=== PATIENT | female | born 1960 | race Caucasian/White ===

== ENCOUNTER 2016-07-25 00:01 | Outpatient (POV) ==
[2015-11-06 17:15] VITALS: BMI 27.4
== END 2016-07-25 00:02 ==
LOC: OUTPT 00:01
PROVIDERS: ATTEND Otolaryngology
DX: H69.90 Unspecified Eustachian tube disorder, unspecified ear (principal)
CPT/HCPCS: 92557; 92567

== ENCOUNTER 2016-08-13 14:00 | Outpatient (RCR) ==
[2015-11-06 17:15] VITALS: BMI 27.4
--- NOTE | 2016-07-31 14:16 | RS.OPPTEV2 ---
Date of Note: 07/31/16 Visit #: 1 Date of Evaluation: 01/17/16 Date of Onset/Injury/Change in Status: 07/15/16 Surgery Performed?: No Treatment Diagnosis: Right shoulder pain History of Condition/Mechanism of Injury:: I have been having trouble with my right shoulder since 2008. She denies knowledge of how she hurt the shoulder but she started to loose the abillity to raise her arm and she was told that her shoulder was frozen. She was in [place] and had therapy at that time for 6 months. It got much better and she ended up moving here to [facility] and went to work at an [employer] where she again began having problems with pain and difficulty with movement. She was put on disability ~ 5 yrs ago but her shoulder still has not been improving.. She has been performing her previous HEP given by PT without benefit. Then she asked her doctor for PT orders. She is only able to sleep 1-2 hr at a time and has been this way since January 17, 2016. She doesn't knoww what happened but she noticed the pain returning on the . 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 Pain Assessment - Pain Description Pain Location: Right shoulder Pain Description: Throbbing, Aching Pain Description: Constant pain Current Pain Intensity: 7/10 Worst Pain Intensity: 10/10 Functional Outcome Measure UE Functional Index: 31 (39% disability) - G Codes & Severity Modifier G Codes & Modifier: Current: Carrying, Moving & Handling Objects - CL. Goal: CJ Source of G Code score: UE Functional Index Observation - Observation Posture: Rounded Shoulders, Scapula Asymmetry (Right pecs moderately tight.) Handedness: Right Shoulder ROM: Left WFL's Shoulder Muscle Strength: Left WFL's - Right Shoulder ROM Right Shoulder Flexion: 115 (Degrees) Right Shoulder Extension: 10 Right Shoulder Abduction: 130 Right Shoulder Internal Rotation: 50 Right Shoulder External Rotation: 30 Right Shoulder ROM Limitations: Pain - Right Shoulder Strength Right Shoulder Flexion: 4- Good- Right Shoulder Extension: 3 Fair Right Shoulder Abduction: 3- Fair- Right Shoulder External Rotation: 3+ Fair+ Right Shoulder Internal Rotation: 3 Fair - Right Elbow ROM Right Elbow Extension: -10 Palpation Palpation Findings: Tenderness, Muscle Guarding (Significant pain even to light touch of the right shoulder and scapular area.) Sensation - Sensation Sensation Description: Tingling (Right upper trap) Interventions - Exercise/Activities/Manual Therapy Exercises/Activities: AAROM right shoulder in all planes of motion 2 sets 10 reps each. She is limited by pain. She was unabe to tolerate any capsular stretching even lateral distraction of the glenohumeral joint. Total minutes of Exercise: 20 min Manual Therapy: NA - Charges Total Direct Minutes: 20 minutes Total Treatment Time: 60 minutes Procedures billed for this date of service:: PT wagner (Medium) and ther ex Assessment Assessment: Constant right shoulder pain with decreased ROM and strength as well as decreased right elbow extension. She is limited in all activity from the pain and decreased ROM and strength. Short Term Goals Goal #1: Patient is able to sleep up to 4 hrs at a time. Goal to be met by: 08/17/16 Goal #2: Right shoulder flexion 145 degrees. Goal to be met by: 08/17/16 Goal #3: Pain rating right shoulder 4/10 on average Goal to be met by: 08/17/16 Goal #4: Independent with basic HEP and knowing when to stop activity. Goal to be met by: 08/17/16 Group Home Goals Goal #1: Intermittent right shoulder pain. Goal to be met by: 08/31/16 Goal #2: Rgiht shoulder AROM WFL in all planes. Goal to be met by: 08/31/16 Goal #3: Right shoulder MMT 4/5 grossly. Goal to be met by: 08/31/16 Goal #4: Independent with DC HEP. Goal to be met by: 08/31/16 Plan - Treatment to be Provided Procedures: Therapeutic Exercises, Therapeutic Activity, Manual Therapy, Massage , Patient Education Modalities: Electrical Stimulation, Ultrasound/Phonophoresis, Class IV Laser, Cryotherapy, Hot Packs - Treatment Plan Frequency: 3 X week Duration: 4 weeks ORDER # VISITS AND/OR THROUGH DATE: 08/31/2016 - Treatment Code (1) Right shoulder pain Qualifiers: Chronicity: chronic Qualified Description: Chronic right shoulder pain Qualifier Code(s): (M25.511) Pain in right shoulder, (G89.29) Other chronic pain (2) Decreased ROM of right shoulder Comments: M25.624
--- NOTE | 2016-08-02 13:22 | RS.OPPTDN ---
Subjective Date of Note: 08/02/16 Visit #: 2 Date of Evaluation: 01/17/16 Treatment Diagnosis: Right shoulder pain Current Subjective/complaints:: Reports a decrease in pain following modalities and exercise. Pain Assessment - Pain Description Pain Location: Right shoulder Pain Description: Throbbing, Aching Pain Description: Constant pain Current Pain Intensity: 7/10 Other Comments regarding Pain:: Reports pain decreased to 4/10 following modalities and exercise. - Treatment Modality: Ultrasound Parameters/Method Applied: [id number] at 1.5w/cm2 to the right shoulder joint. Patient Position: Sitting - Heat/Cryotherapy Treatment: Hot Pack ([id number] to the right shoulder prior to US and EX. Patient in sitting. ) Interventions - Exercise/Activities/Manual Therapy Exercises/Activities: [id number] PROM and AAROM right shoulder in all planes in sitting. Wand for flexion just above shoulder height and IR/ER. Codmans. Cuff series, 4 directions, 2s/10reps each. Total minutes of Exercise: 15mins Manual Therapy: NA HOME EXERCISE PROGRAM: Wand just above shoulder height and IR/ER. Codmans. Cuff series. - Charges Total Direct Minutes: 27mins Total Treatment Time: 47mins Procedures billed for this date of service:: HP, US, EX Assessment: Patient responds well to treatment today and reports a decrease in pain. Patient Education: Education of diagnosis, Body/Joint mechanics, Home Exercise Program, Home Safety, Activity Modification Patient demonstrates compliance with HEP?: Yes Short Term Goals Goal #1: Patient is able to sleep up to 4 hrs at a time. Goal to be met by: 08/17/16 Goal #2: Right shoulder flexion 145 degrees. Goal to be met by: 08/17/16 Goal #3: Pain rating right shoulder 4/10 on average Goal to be met by: 08/17/16 Progress towards Goal:: Progressing Goal #4: Independent with basic HEP and knowing when to stop activity. Goal to be met by: 08/17/16 Progress towards Goal:: Progressing [employer] Goals Goal #1: Intermittent right shoulder pain. Goal to be met by: 08/31/16 Goal #2: Rgiht shoulder AROM WFL in all planes. Goal to be met by: 08/31/16 Goal #3: Right shoulder MMT 4/5 grossly. Goal to be met by: 08/31/16 Goal #4: Independent with DC HEP. Goal to be met by: 08/31/16 Plan PLAN OF CARE EXPIRES ON:: 08/31/16 ORDER # VISITS AND/OR THROUGH DATE: 08/31/2016 PLAN: Continue Plan of Care
--- NOTE | 2016-08-06 16:03 | RS.OPPTDN ---
Subjective Date of Note: 08/06/16 Visit #: 3 Date of Evaluation: 01/17/16 Treatment Diagnosis: Right shoulder pain Current Subjective/complaints:: Patient reports last treatment helped reduce pain in the right shoulder. Pain Assessment - Pain Description Pain Location: Right shoulder Pain Description: Throbbing, Aching Pain Description: Constant pain Current Pain Intensity: 7/10 - Treatment Modality: Ultrasound Parameters/Method Applied: [id number] at 1.5w/cm2 to right shoulder joint and upper trap prior to EX. Patient Position: Sitting - Heat/Cryotherapy Treatment: Hot Pack ([id number] to the right shoulder prior to US and EX. Patient in sitting. ) Interventions - Exercise/Activities/Manual Therapy Exercises/Activities: [id number] PROM and AAROM right shoulder in all planes in sitting. Wand for flexion just above shoulder height, IR/ER, and abduction, multiple reps. Codmans. Cuff series. Total minutes of Exercise: 15mins Manual Therapy: NA HOME EXERCISE PROGRAM: Wand just above shoulder height and IR/ER. Codmans. Cuff series. - Charges Total Direct Minutes: 25mins Total Treatment Time: 45mins Procedures billed for this date of service:: HP, US, EX Assessment: Patient responding to treatment. Appears to be working on HEP. Patient Education: Education of diagnosis, Body/Joint mechanics, Home Exercise Program, Home Safety, Activity Modification Patient demonstrates compliance with HEP?: Yes Short Term Goals Goal #1: Patient is able to sleep up to 4 hrs at a time. Goal to be met by: 08/17/16 Goal #2: Right shoulder flexion 145 degrees. Goal to be met by: 08/17/16 Progress towards Goal:: Progressing Goal #3: Pain rating right shoulder 4/10 on average Goal to be met by: 08/17/16 Progress towards Goal:: Progressing Goal #4: Independent with basic HEP and knowing when to stop activity. Goal to be met by: 08/17/16 Progress towards Goal:: Progressing [facility] Goals Goal #1: Intermittent right shoulder pain. Goal to be met by: 08/31/16 Goal #2: Rgiht shoulder AROM WFL in all planes. Goal to be met by: 08/31/16 Goal #3: Right shoulder MMT 4/5 grossly. Goal to be met by: 08/31/16 Goal #4: Independent with DC HEP. Goal to be met by: 08/31/16 Plan PLAN OF CARE EXPIRES ON:: 08/31/16 ORDER # VISITS AND/OR THROUGH DATE: 08/31/2016 PLAN: Continue Plan of Care
--- NOTE | 2016-08-09 15:27 | RS.OPPTDN ---
Subjective Date of Note: 08/09/16 Visit #: 4 Date of Evaluation: 01/17/16 Treatment Diagnosis: Right shoulder pain Current Subjective/complaints:: Patient reports continued improvement with pain in right shoulder. States she is working on HEP. Pain Assessment - Pain Description Pain Location: Right shoulder Pain Description: Throbbing, Aching Pain Description: Constant pain Current Pain Intensity: 5/10 - Treatment Modality: Ultrasound Parameters/Method Applied: [id number] at 1.5w/cm2 to the right shoulder joint and upper traps. Patient Position: Sitting - Heat/Cryotherapy Treatment: Hot Pack (u17fsts to the right shoulder prior to US and EX. Patient in sitting. ) Interventions - Exercise/Activities/Manual Therapy Exercises/Activities: [id number] PROM and AAROM right shoulder in all planes in sitting. Reveiwed wand exercise, Codmans. Cuff series. Began yellow theraband for bilateral shoulder ER. Patient given copies of new exercises. Total minutes of Exercise: 15mins Manual Therapy: NA HOME EXERCISE PROGRAM: Wand just above shoulder height and IR/ER. Codmans. Cuff series. Yellow theraband for bilateral shoulder ER. - Charges Total Direct Minutes: 27mins Total Treatment Time: 47mins Procedures billed for this date of service:: HP, US, EX Assessment: Patient progressing with reports of reduction in pain and with increase in resistive exercise. Patient Education: Body/Joint mechanics, Home Exercise Program, Home Safety Patient demonstrates compliance with HEP?: Yes Short Term Goals Goal #1: Patient is able to sleep up to 4 hrs at a time. Goal to be met by: 08/17/16 Progress towards Goal:: Progressing Goal #2: Right shoulder flexion 145 degrees. Goal to be met by: 08/17/16 Progress towards Goal:: Progressing Goal #3: Pain rating right shoulder 4/10 on average Goal to be met by: 08/17/16 Progress towards Goal:: Progressing Goal #4: Independent with basic HEP and knowing when to stop activity. Goal to be met by: 08/17/16 Progress towards Goal:: Progressing [facility] Goals Goal #1: Intermittent right shoulder pain. Goal to be met by: 08/31/16 Goal #2: Rgiht shoulder AROM WFL in all planes. Goal to be met by: 08/31/16 Goal #3: Right shoulder MMT 4/5 grossly. Goal to be met by: 08/31/16 Goal #4: Independent with DC HEP. Goal to be met by: 08/31/16 Plan PLAN OF CARE EXPIRES ON:: 08/31/16 ORDER # VISITS AND/OR THROUGH DATE: 08/31/2016 PLAN: Continue Plan of Care
--- NOTE | 2016-08-10 15:33 | RS.OPPTDN ---
Subjective Date of Note: 08/10/16 Visit #: 5 Date of Evaluation: 01/17/16 Treatment Diagnosis: Right shoulder pain Current Subjective/complaints:: Patient states treatment has been helping. REports she takes ibuprofen to help with pain, which is beneficial. Pain Assessment - Pain Description Pain Location: Right shoulder Pain Description: Throbbing, Aching Pain Description: Constant pain Current Pain Intensity: 5/10 - Treatment Modality: Ultrasound Parameters/Method Applied: continuous @ 1.5 w/cm2 x 12 mins to the R shoulder and scapula. Patient Position: Sitting - Heat/Cryotherapy Treatment: Hot Pack (20 mins to the R shoulder in sitting) Interventions - Exercise/Activities/Manual Therapy Exercises/Activities: [id number] PROM and AAROM right shoulder in all planes in sitting. Patient receives manual isometrics for the R shoulder all directions 2/ 5. Codmans. Cuff series. Patient performing yellow tband at home routinely. Manual Therapy: NA HOME EXERCISE PROGRAM: Wand just above shoulder height and IR/ER. Codmans. Cuff series. Yellow theraband for bilateral shoulder ER. - Charges Total Direct Minutes: 29 Total Treatment Time: 44 Procedures billed for this date of service:: hp u/s, ex Assessment: Patient with increased stiffness to the R shoulder. She is experiencing relief with current treatment and positive about her progress so far. She demo's good resistance with all isometrics except ER. Patient Education: Education of diagnosis, Body/Joint mechanics, Home Exercise Program, Home Safety, Activity Modification, Education of Plan of Care Patient demonstrates compliance with HEP?: Yes Short Term Goals Goal #1: Patient is able to sleep up to 4 hrs at a time. Goal to be met by: 08/17/16 Progress towards Goal:: Progressing Goal #2: Right shoulder flexion 145 degrees. Goal to be met by: 08/17/16 Progress towards Goal:: Progressing Goal #3: Pain rating right shoulder 4/10 on average Goal to be met by: 08/17/16 Progress towards Goal:: Progressing Goal #4: Independent with basic HEP and knowing when to stop activity. Goal to be met by: 08/17/16 Progress towards Goal:: Progressing [facility] Goals Goal #1: Intermittent right shoulder pain. Goal to be met by: 08/31/16 Goal #2: Rgiht shoulder AROM WFL in all planes. Goal to be met by: 08/31/16 Goal #3: Right shoulder MMT 4/5 grossly. Goal to be met by: 08/31/16 Goal #4: Independent with DC HEP. Goal to be met by: 08/31/16 Plan PLAN OF CARE EXPIRES ON:: 08/31/16 ORDER # VISITS AND/OR THROUGH DATE: 08/31/2016 PLAN: Continue Plan of Care
--- NOTE | 2016-08-13 15:24 | RS.OPPTDN ---
Subjective Date of Note: 08/13/16 Visit #: 6 Date of Evaluation: 01/17/16 Treatment Diagnosis: Right shoulder pain Current Subjective/complaints:: Patient reports right shoulder pain continues to get better. Reports she is working on HEP as instructed. Pain Assessment - Pain Description Pain Location: Right shoulder Pain Description: Aching Current Pain Intensity: 4-5/10 - Treatment Modality: Ultrasound Parameters/Method Applied: [id number] at 1.5w/cm2 to the right posterior shoulder joint, mid scap, and upper trap. Patient Position: Sitting - Heat/Cryotherapy Treatment: Hot Pack ([id number] to the right shoulder and scap region. Patient in sitting. ) Interventions - Exercise/Activities/Manual Therapy Exercises/Activities: [id number] PROM and AAROM right shoulder in all planes in sitting. Scapular stretch with UE across midline. Isometrics for the right shoulder all directions, multiple reps, with focus on IR and ER today. Wand for overhead flexion. Green theraband for scapular retraction. Reviewed theraband for bilateral ER. Total minutes of Exercise: 18mins Manual Therapy: [id number] Trigger point release to right posterior shoulder at infraspinatus and origin of the lats. Also to the mid scapular musculature and the upper traps. Total minutes of Manual Therapy: 10mins HOME EXERCISE PROGRAM: Wand just above shoulder height and IR/ER. Codmans. Cuff series. Yellow theraband for bilateral shoulder ER. Green theraband scapular retraction. - Charges Total Direct Minutes: 38mins Total Treatment Time: 58mins Procedures billed for this date of service:: HP, US, MT, EX Assessment: Patient responding to treatment and progressing with postural strengthening exercise. Patient Education: Education of diagnosis, Body/Joint mechanics, Home Exercise Program, Home Safety Comments: Education of dx, mechanics, and need to progress HEP. Patient demonstrates compliance with HEP?: Yes Short Term Goals Goal #1: Patient is able to sleep up to 4 hrs at a time. Goal to be met by: 08/17/16 Progress towards Goal:: Progressing Goal #2: Right shoulder flexion 145 degrees. Goal to be met by: 08/17/16 (100%) Progress towards Goal:: Met Goal #3: Pain rating right shoulder 4/10 on average Goal to be met by: 08/17/16 Progress towards Goal:: Progressing Goal #4: Independent with basic HEP and knowing when to stop activity. Goal to be met by: 08/17/16 (100%) Progress towards Goal:: Met [facility] Goals Goal #1: Intermittent right shoulder pain. Goal to be met by: 08/31/16 Goal #2: Rgiht shoulder AROM WFL in all planes. Goal to be met by: 08/31/16 Goal #3: Right shoulder MMT 4/5 grossly. Goal to be met by: 08/31/16 Goal #4: Independent with DC HEP. Goal to be met by: 08/31/16 Plan PLAN OF CARE EXPIRES ON:: 08/31/16 ORDER # VISITS AND/OR THROUGH DATE: 08/31/2016 PLAN: Continue Plan of Care
== END 2016-08-14 ==
PROVIDERS: ATTEND Orthopaedic Surgery
DX: M75.101 Unspecified rotator cuff tear or rupture of right shoulder, not specified as traumatic (principal)

== ENCOUNTER 2016-08-28 11:00 | Outpatient (RCR) ==
[2016-07-04 08:37] VITALS: BMI 27.4
--- NOTE | 2016-08-17 14:08 | RS.OPPTDN ---
Subjective Date of Note: 08/17/16 Visit #: 7 Date of Evaluation: 01/17/16 Treatment Diagnosis: Right shoulder pain Current Subjective/complaints:: Patient reports continued progress with decreased pain and increased use of the right UE. Magdalena states she has an order from another physician to have PT on her neck. Later in treatment patient states her pain is in the right posterior shoulder joint and mid scap region. States she has little to no neck pain. Pain Assessment - Pain Description Pain Location: Right shoulder Pain Description: Constant pain Current Pain Intensity: 4-5/10 - Treatment Modality: Ultrasound Parameters/Method Applied: [id number] to the right shoulder joint, mid scapular border, and upper traps. - Heat/Cryotherapy Treatment: Hot Pack (t67oetl to the right shoulder prior to US and EX. Patient sitting. ) Interventions - Exercise/Activities/Manual Therapy Exercises/Activities: [id number] PROM and AAROM right shoulder in all planes in sitting. Reviewed isometrics for the right shoulder all directions. Scapular retraction. Added isometric cervical retraction. Patient given copies of new exercise. Total minutes of Exercise: 12mins Manual Therapy: NA HOME EXERCISE PROGRAM: Wand just above shoulder height and IR/ER. Codmans. Cuff series. Yellow theraband for bilateral shoulder ER. Green theraband scapular retraction. - Charges Total Direct Minutes: 24mins Total Treatment Time: 44mins Procedures billed for this date of service:: HP, US, EX Assessment: Patient consistently responding to treatment. Patient Education: Body/Joint mechanics, Home Exercise Program, Activity Modification Patient demonstrates compliance with HEP?: Yes Short Term Goals Goal #1: Patient is able to sleep up to 4 hrs at a time. Goal to be met by: 08/17/16 Progress towards Goal:: Progressing Goal #2: Right shoulder flexion 145 degrees. Goal to be met by: 08/17/16 (100%) Progress towards Goal:: Met Goal #3: Pain rating right shoulder 4/10 on average Goal to be met by: 08/17/16 Progress towards Goal:: Progressing Goal #4: Independent with basic HEP and knowing when to stop activity. Goal to be met by: 08/17/16 (100%) Progress towards Goal:: Met [facility] Goals Goal #1: Intermittent right shoulder pain. Goal to be met by: 08/31/16 Goal #2: Rgiht shoulder AROM WFL in all planes. Goal to be met by: 08/31/16 Goal #3: Right shoulder MMT 4/5 grossly. Goal to be met by: 08/31/16 Goal #4: Independent with DC HEP. Goal to be met by: 08/31/16 Plan PLAN OF CARE EXPIRES ON:: 08/31/16 ORDER # VISITS AND/OR THROUGH DATE: 08/31/2016 PLAN: Continue Plan of Care
--- NOTE | 2016-08-20 12:16 | RS.OPPTDN ---
Subjective Date of Note: 08/20/16 Visit #: 8 Date of Evaluation: 01/17/16 Payer Source: MEDICARE Treatment Diagnosis: Right shoulder pain Current Subjective/complaints:: Patient reports therapy has helped reduce her right shoulder pain. Reports no neck pain or headache today, only mild discomfort at occipit. Magdalena again states another physician will be sending her for therapy for neck pain. Pain Assessment - Pain Description Pain Location: Right shoulder Pain Description: Constant pain Current Pain Intensity: 2/10 Other Comments regarding Pain:: no neck pain only mild discomfort at occipit. - Treatment Modality: Ultrasound Parameters/Method Applied: [id number] at 1.5w/cm2 to the right shoulder joint, traps, and mid-scap musculature. Patient Position: Sitting - Heat/Cryotherapy Treatment: Hot Pack (j53guqa to the right shoulder. Patient in sitting. ) Interventions - Exercise/Activities/Manual Therapy Exercises/Activities: [id number] PROM and AAROM right shoulder in all planes in sitting. Isometrics for the right shoulder all directions, including IR and ER. Scapular retraction. Isometric cervical retraction. Blue theraband scap retraction. Red theraband bilateral ER. Ball on the wall. Reviewed cuff series. Patient given copies of new exercise. Total minutes of Exercise: 15mins Manual Therapy: NA HOME EXERCISE PROGRAM: Wand just above shoulder height and IR/ER. Codmans. Cuff series. Yellow theraband for bilateral shoulder ER. Green theraband scapular retraction. Ball on wall. Isometrics including IR and ER. - Objective Findings Observations,measurements,etc.: Demos right shoulder ROM WFL and MMT to 4+/5. - Charges Total Direct Minutes: 25mins Total Treatment Time: 45mins Procedures billed for this date of service:: HP, US, EX Assessment: Patient progressed well with HEP. Patient will need to work on postural strengthening exercises which will help with mild upper cervical posture and discomfort. Patient Education: Education of diagnosis, Body/Joint mechanics, Home Exercise Program, Home Safety Comments: patient instructed in the benefits of current postural strengthening exercise for upper cervical discomfort as well as right shoulder. Patient demonstrates compliance with HEP?: Yes Short Term Goals Goal #1: Patient is able to sleep up to 4 hrs at a time. Goal to be met by: 08/17/16 (100%) Progress towards Goal:: Met Goal #2: Right shoulder flexion 145 degrees. Goal to be met by: 08/17/16 (100%) Progress towards Goal:: Met Goal #3: Pain rating right shoulder 4/10 on average Goal to be met by: 08/17/16 (100%) Progress towards Goal:: Met Goal #4: Independent with basic HEP and knowing when to stop activity. Goal to be met by: 08/17/16 (100%) Progress towards Goal:: Met [employer]acher Goals Goal #1: Intermittent right shoulder pain. Goal to be met by: 08/31/16 Progress towards goal: Progressing Goal #2: Rgiht shoulder AROM WFL in all planes. Goal to be met by: 08/31/16 (100%) Progress towards goal: Met Goal #3: Right shoulder MMT 4/5 grossly. Goal to be met by: 08/31/16 (100%) Progress towards goal: Met Goal #4: Independent with DC HEP. Goal to be met by: 08/31/16 Progress towards goal: Progressing Plan PLAN OF CARE EXPIRES ON:: 08/31/16 ORDER # VISITS AND/OR THROUGH DATE: 08/31/2016 PLAN: Continue Plan of Care
--- NOTE | 2016-08-22 08:13 | RS.OPPTDN ---
Subjective Date of Note: 08/21/16 Visit #: 9 Date of Evaluation: 01/17/16 Payer Source: MEDICARE Treatment Diagnosis: Right shoulder pain Current Subjective/complaints:: Patient reports right shoulder is doing much better. States she has much less pain with reaching with the right UE. Reports some discomfort at end range. Pain Assessment - Pain Description Pain Location: Right shoulder Pain Description: Constant pain Current Pain Intensity: 2/10 - Treatment Modality: Ultrasound Parameters/Method Applied: 1.5 w/cm2 continuous X 10 mins throughout right shoulder, upper traps, and scapular musculature. Patient Position: Sitting - Heat/Cryotherapy Treatment: Hot Pack (X 15 mins to right shoulder) Interventions - Exercise/Activities/Manual Therapy Exercises/Activities: x 13 mins PROM and AAROM right shoulder in all planes in sitting. Isometrics for the right shoulder all directions, including IR and ER. Scapular retraction. Isometric cervical retraction. Blue theraband scap retraction. Red theraband bilateral ER. Ball on the wall. Patient given yellow, green, and blue bands for home. Manual Therapy: NA HOME EXERCISE PROGRAM: Wand just above shoulder height and IR/ER. Codmans. Cuff series. Yellow theraband for bilateral shoulder ER. Green theraband scapular retraction. Ball on wall. Isometrics including IR and ER. - Objective Findings Observations,measurements,etc.: Patient demonstrates right shoulder AROM WFL's. Strength generally 4+/5. - Charges Total Direct Minutes: 23 mins Total Treatment Time: 43 mins Procedures billed for this date of service:: HP, US, EX Assessment: Patient reports right shoulder is much better. She demonstrates functional AROM in all directions and functional strength. Expect to see for one more visit than plan for discharge with HEP. Patient Education: Education of diagnosis (postural awareness), Body/Joint mechanics, Home Exercise Program Patient demonstrates compliance with HEP?: Yes Short Term Goals Goal #1: Patient is able to sleep up to 4 hrs at a time. Goal to be met by: 08/17/16 (100%) Progress towards Goal:: Met Goal #2: Right shoulder flexion 145 degrees. Goal to be met by: 08/17/16 (100%) Progress towards Goal:: Met Goal #3: Pain rating right shoulder 4/10 on average Goal to be met by: 08/17/16 (100%) Progress towards Goal:: Met Goal #4: Independent with basic HEP and knowing when to stop activity. Goal to be met by: 08/17/16 (100%) Progress towards Goal:: Met Package Reinspector Goals Goal #1: Intermittent right shoulder pain. Goal to be met by: 08/31/16 Progress towards goal: Progressing Goal #2: Rgiht shoulder AROM WFL in all planes. Goal to be met by: 08/31/16 (100%) Progress towards goal: Met Goal #3: Right shoulder MMT 4/5 grossly. Goal to be met by: 08/31/16 (100%) Progress towards goal: Met Goal #4: Independent with DC HEP. Goal to be met by: 08/31/16 Progress towards goal: Progressing Plan PLAN OF CARE EXPIRES ON:: 08/31/16 ORDER # VISITS AND/OR THROUGH DATE: 08/31/2016 PLAN: Continue Plan of Care (one more visit)
--- NOTE | 2016-08-24 15:57 | RS.CXNS ---
Date of scheduled appointment: 08/24/16 Type: Cancel
--- NOTE | 2016-08-28 14:05 | RS.OPPTDN ---
Subjective Date of Note: 08/28/16 Visit #: 10 Date of Evaluation: 01/17/16 Payer Source: MEDICARE Treatment Diagnosis: Right shoulder pain Current Subjective/complaints:: Patient reports she will continue HEP as instructed. States she did discuss discharge with PT last session. States she is doing most light to moderate daily activities. Pain Assessment - Pain Description Pain Location: Right shoulder Pain Description: Constant pain Current Pain Intensity: 2/10 - Treatment Modality: Ultrasound Parameters/Method Applied: [id number] at 1.5w/cm2 to the right shoulder joint and upper traps. Patient Position: Sitting - Heat/Cryotherapy Treatment: Hot Pack ([id number] to the right shoulder prior to US and EX. Patient in sitting. ) Interventions - Exercise/Activities/Manual Therapy Exercises/Activities: [id number] PROM and AAROM right shoulder in all planes in sitting. Isometrics for the right shoulder all directions, including IR and ER. Scapular retraction. Isometric cervical retraction. Blue theraband scap retraction. Red theraband bilateral ER. Ball on the wall. Patient given additional theraband for HEP. Total minutes of Exercise: 20mins Manual Therapy: NA HOME EXERCISE PROGRAM: Wand just above shoulder height and IR/ER. Codmans. Cuff series. Yellow and red therabands for bilateral shoulder ER. Green theraband scapular retraction. Ball on wall. Isometrics including IR and ER. - Objective Findings Observations,measurements,etc.: Demos AROM WFL and 4+/5 MMT right shoulder. - Charges Total Direct Minutes: 32mins Total Treatment Time: 52mins Procedures billed for this date of service:: HP, US, EX Assessment: Patient has met 7 of 8 treatment goals and is independent with HEP. Patient Education: Education of diagnosis, Body/Joint mechanics, Home Exercise Program, Activity Modification, Education of Plan of Care Comments: Completed all patient education and finalized HEP. Patient demonstrates compliance with HEP?: Yes Short Term Goals Goal #1: Patient is able to sleep up to 4 hrs at a time. Goal to be met by: 08/17/16 (100%) Progress towards Goal:: Met Goal #2: Right shoulder flexion 145 degrees. Goal to be met by: 08/17/16 (100%) Progress towards Goal:: Met Goal #3: Pain rating right shoulder 4/10 on average Goal to be met by: 08/17/16 (100%) Progress towards Goal:: Met Goal #4: Independent with basic HEP and knowing when to stop activity. Goal to be met by: 08/17/16 (100%) Progress towards Goal:: Met Alf Goals Goal #1: Intermittent right shoulder pain. Goal to be met by: 08/31/16 Progress towards goal: Progressing Goal #2: Rgiht shoulder AROM WFL in all planes. Goal to be met by: 08/31/16 (100%) Progress towards goal: Met Goal #3: Right shoulder MMT 4/5 grossly. Goal to be met by: 08/31/16 (100%) Progress towards goal: Met Goal #4: Independent with DC HEP. Goal to be met by: 08/31/16 (100%) Progress towards goal: Met Plan PLAN OF CARE EXPIRES ON:: 08/31/16 ORDER # VISITS AND/OR THROUGH DATE: 08/31/2016 PLAN: Plan for Discharge (Discharge with HEP.)
--- NOTE | 2016-09-18 12:49 | RS.OPPTDC ---
Date of Discharge: 08/28/16 Date of Evaluation: 01/17/16 Number of Visits: 10 Treatment Diagnosis: Right shoulder pain Current Complaints/Gains: Patient reports she is much better and can performs most light to moderate tasks. Pain Assessment - Pain Description Pain Location: Right shoulder Pain Description: Constant pain Current Pain Intensity: 2/10 Functional Outcome Measure UE Functional Index: 60 (25% disabilty) - G Codes & Severity Modifier G Codes & Modifier: Carrying, Moving & Handling: Goal - CJ. D/C - CJ Source of G Code score: UE Functional Scale Interventions - Exercise/Activities/Manual Therapy Exercises/Activities: NA Manual Therapy: NA - Charges Total Direct Minutes: NA Total Treatment Time: NA Procedures billed for this date of service:: NA Assessment Assessment: Right shoulder AROM was WFLs and MMT 4+/5 right shoulder strength. I with HEP and 7/8 goals were met. Short Term Goals Goal #1: Patient is able to sleep up to 4 hrs at a time. Goal to be met by: 08/17/16 (100%) Progress towards Goal:: Met Goal #2: Right shoulder flexion 145 degrees. Goal to be met by: 08/17/16 (100%) Progress towards Goal:: Met Goal #3: Pain rating right shoulder 4/10 on average Goal to be met by: 08/17/16 (100%) Progress towards Goal:: Met Goal #4: Independent with basic HEP and knowing when to stop activity. Goal to be met by: 08/17/16 (100%) Progress towards Goal:: Met Fpc Goals Goal #1: Intermittent right shoulder pain. Goal to be met by: 08/31/16 Progress towards goal: Progressing Goal #2: Rgiht shoulder AROM WFL in all planes. Goal to be met by: 08/31/16 (100%) Progress towards goal: Met Goal #3: Right shoulder MMT 4/5 grossly. Goal to be met by: 08/31/16 (100%) Progress towards goal: Met Goal #4: Independent with DC HEP. Goal to be met by: 08/31/16 (100%) Progress towards goal: Met Plan Reason for Discharge:: No Further Skilled Therapy Indicated
== END 2016-09-11 ==
PROVIDERS: ATTEND Orthopaedic Surgery
DX: M75.101 Unspecified rotator cuff tear or rupture of right shoulder, not specified as traumatic (principal)

== ENCOUNTER 2016-08-29 00:01 | Outpatient (POV) | payer OTHER ==
[2016-07-04 08:37] VITALS: BMI 27.4
== END 2016-08-29 00:02 ==
LOC: OUTPT 00:01
PROVIDERS: ATTEND Otolaryngology
DX: H91.90 Unspecified hearing loss, unspecified ear (principal)
CPT/HCPCS: 92557; 92567

== ENCOUNTER 2016-09-12 00:01 | Outpatient (POV) | payer OTHER ==
[2016-07-04 08:37] VITALS: BMI 27.4
== END 2016-09-12 00:02 ==
LOC: OUTPT 00:01
PROVIDERS: ATTEND Otolaryngology
DX: H91.90 Unspecified hearing loss, unspecified ear (principal)
CPT/HCPCS: 92553

== ENCOUNTER 2016-09-14 08:28 | Outpatient (CLI) | payer OTHER ==
[2016-07-04 08:37] VITALS: BMI 27.4
[2016-09-14 08:56] LABS: BASOPHILS % (AUTO) 0.5 % (0.0-3.0); EOSINOPHILS # (AUTO) 0.3 K/ul (0.0-0.7); EOSINOPHILS % (AUTO) 4.3 % (0.0-7.0); HEMATOCRIT 42.2 % (37.0-47.0); HEMOGLOBIN 14.3 g/dl (12.0-16.0); IMMATURE GRANULOCYTE % (AUTO) 0.3 % (0.0-5.0); LYMPHOCYTES # (AUTO) 1.3 K/uL (0.60-3.4); LYMPHOCYTES % (AUTO) 19.7 (10.0-50.0); MEAN CORPUSCULAR HEMOGLOBIN 32.1 pg (27.0-31.0); MEAN CORPUSCULAR HGB CONC 33.9 (31.8-35.4); MEAN CORPUSCULAR VOLUME 94.8 fl (81.0-99.0); MONOCYTES # (AUTO) 0.6 K/uL (0.4-2.0); MONOCYTES % (AUTO) 9.9 (0-10); NEUTROPHILS # (AUTO) 4.2 K/ul (2.0-6.9); NEUTROPHILS % (AUTO) 65.3; PLATELET COUNT 233 10^3/uL (140-440); RED BLOOD COUNT 4.45 10^6/ul (4.20-5.40); WHITE BLOOD COUNT 6.45 K/ul (4.6-10.2)
[2016-09-14 10:24] LABS: ALBUMIN 3.8 g/dL (3.4-5.0); ALBUMIN/GLOBULIN RATIO 1.15; ANION GAP 13.3; BILIRUBIN,TOTAL 0.66 mg/dL (0.00-1.20); BUN/CREATININE RATIO 8.75; CALCIUM 9.1 mg/dL (8.2-10.2); CREATININE 0.8 mg/dL (0.60-1.30); POTASSIUM 4.3 mmol/L (3.5-5.10); TOTAL PROTEIN 7.1 g/dL (6.4-8.2)
== END 2016-09-14 08:29 | disposition home or self-care (01) ==
LOC: LAB 08:28
PROVIDERS: ATTEND Nurse Practitioner Family
DX: E03.9 Hypothyroidism, unspecified (principal); J44.9 Chronic obstructive pulmonary disease, unspecified; F32.9 Major depressive disorder, single episode, unspecified
CPT/HCPCS: 36415; 80053; 84439; 84443; 84481; 85025

== ENCOUNTER 2016-09-18 09:46 | Outpatient (CLI) ==
[2016-07-04 08:37] VITALS: BMI 27.4
--- NOTE | 2016-09-19 12:15 | CT ---
EXAM: CT temporal bones with contrast. TECHNIQUE: Helical high-resolution axial CT of the temporal bones was performed with contrast with c oronal reconstructions HISTORY:Left-sided otitis with possible cholesteatoma COMPARISON: None FINDINGS: Right: The external auditory canal is widely patent. The tympanic membrane is intact and not thicke jenifer. The ossicles and scutum are unremarkable with no evidence for erosion. There is no soft tissu e in Prussak's space or elsewhere in the middle ear cavity. The aditus ad antrum is widely patent a nd there is no evidence for dehiscence of the tegmen tympani. There is a fair amount of fluid in the mastoid air cells. There is no soft tissue on the cochlear promontory and the course of the facial nerve is normal. The bony labyrinth has a normal appearance. The fissula ante fenestram demonstrat es normal mineralization. There are three normal-appearing semicircular canals with no evidence for dehiscence. The vestibule is unremarkable and normal size. The cochlea demonstrates 2.5 turns. The cochlear and vestibular aqueducts and internal auditory canal are normal size. Left: The external auditory canal is widely patent. The tympanic membrane is intact and not thicke jenifer. The ossicles and scutum are unremarkable with no evidence for erosion. There is no soft tiss ue in Prussak's space or elsewhere in the middle ear cavity. The aditus ad antrum is widely patent and there is no evidence for dehiscence of the tegmen tympani. There is a fair amount of fluid in t he mastoid air cells. There is no soft tissue on the cochlear promontory and the course of the facia l nerve is normal. The bony labyrinth has a normal appearance. The fissula ante fenestram demonstr ates normal mineralization. There are three normal-appearing semicircular canals with no evidence fo r dehiscence. The vestibule is unremarkable and normal size. The cochlea demonstrates 2.5 turns. T he cochlear and vestibular aqueducts and internal auditory canal are normal size. There are no acute or chronic osseous abnormalities. 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 There is no pathologic enhancement. Visualized intracranial contents are unremar kable. The visualized orbits are unremarkable Visualized paranasal sinuses show no air-fluid levels . IMPRESSION: 1. Bilateral chronic mastoiditis. No convincing evidence for cholesteatoma however. Donavon's spa ce is clear as well as the aditus ad antrum. Report called to Dr. Monahan
== END 2016-09-18 09:47 | disposition home or self-care (01) ==
LOC: RAD 09:46
PROVIDERS: ATTEND Otolaryngology
DX: H66.92 Otitis media, unspecified, left ear (principal)
CPT/HCPCS: 36415

== ENCOUNTER 2016-10-03 00:01 | Outpatient (POV) ==
[2016-07-04 08:37] VITALS: BMI 27.4
== END 2016-10-03 00:02 | disposition home or self-care (01) ==
LOC: OUTPT 00:01
PROVIDERS: ATTEND Otolaryngology
DX: H71.92 Unspecified cholesteatoma, left ear (principal); H90.72 Mixed conductive and sensorineural hearing loss, unilateral, left ear, with unrestricted hearing on the contralateral side
CPT/HCPCS: 92553; 92567

== ENCOUNTER → 2016-11-27 | Outpatient (POV) ==
[2016-07-04 08:37] VITALS: BMI 27.4
== END ==
LOC: OUTPT 00:01
PROVIDERS: ATTEND Otolaryngology
DX: H69.90 Unspecified Eustachian tube disorder, unspecified ear (principal)
CPT/HCPCS: 92552; 92567

== ENCOUNTER 2017-07-04 15:48 | Outpatient (CLI) | payer OTHER ==
[2016-07-04 08:37] VITALS: BMI 27.4
--- NOTE | 2017-07-04 16:17 | DI ---
EXAM: CHEST FRONTAL AND LATERAL VIEWS HISTORY: Shortness of breath. COMPARISON: None FINDINGS: Normal heart size. Mild hyperinflation of the lungs. No acute infiltrates are seen. No v ascular congestion. There is no consolidation, visible pleural fluid or pneumothorax. Bones reveal n o acute fracture. IMPRESSION: No acute cardiopulmonary process.
== END 2017-07-04 15:49 | disposition home or self-care (01) ==
LOC: RAD 15:48
PROVIDERS: ATTEND Nurse Practitioner Family
DX: R06.02 Shortness of breath (principal)

== ENCOUNTER 2017-07-24 12:32 | Emergency (ER) ==
[2017-07-24 12:36] VITALS: BP 108/66; TEMP 98.3; BMI 31.2
--- NOTE | 2017-07-24 14:35 | DI ---
EXAM: LEFT FOOT, 3 VIEWS HISTORY: Foot pain FINDINGS: The bones appear mildly demineralized. There is mild diffuse interphalangeal joint osteoa rthritis. No fracture or joint effusion is identified. Soft tissues grossly within normal limits. IMPRESSION: No acute findings. Mild arthropathy.
--- NOTE | 2017-07-24 14:51 | ED.PDOC ---
General ED Provider: Dr. NARDA BOUCHER Chief Complaint: Foot Pain/Injury Stated Complaint: left foot pain Time Seen by Physician: 12:45 Mode of Arrival: Walk-In Information Source: Patient Exam Limitations: No limitations Primary Care Provider: KAI VAZ Nursing and Triage Documentation Reviewed and Agree: Yes Reviewed sepsis parameters & appropriate labs ordered?: Yes System Inflammatory Response Syndrome: Not Applicable Sepsis Protocol: For patient's 13 years and over: Temp is 96.8 and below OR 101 and greater Pulse >90 BPM Resp >20/minute Acutely Altered Mental Status Are patient's symptoms suggestive of a new infection, such as: -Pneumonia -Skin, Soft Tissue -Endocarditis -UTI -Bone, Joint Infection -Implantable Device -Acute Abdominal Infection -Wound Infection -Meningitis -Blood Stream Catheter Infection -Unknown System Inflammatory Response Syndrome: Not Applicable Musculoskeletal Complaint Exam - Ankle/Foot Complaint/Exam Location of Injury: Reports: Left, Foot Mechanism of Injury: Reports: No known trauma Onset/Duration: today Symptoms Are: Reports: Still present Onset of Pain: Reports: Hours Initial Severity: Mild Current Severity: Mild Location: Reports: Discrete Character: Reports: Aching Alleviating: Reports: Rest Aggravating: Reports: Movement Able to Bear Weight: Yes Associated Signs and Symptoms: Denies: Swelling, Redness, Bruising, Fever, Weakness, Numbness, Tingling Gout Risk Factors: Reports: >40 years old Related Surgical History: Reports: None Achilles Tendon Abnormality: No Tenderness: Present: Midfoot Differential Diagnosis: Closed Fracture Review of Systems - Review Of Systems Constitutional: Reports: No symptoms Eyes: Reports: No symptoms Ears, Nose, Mouth, Throat: Reports: No symptoms Respiratory: Reports: No symptoms Cardiac: Reports: No symptoms GI: Reports: No symptoms : Reports: No symptoms Musculoskeletal: Reports: Joint pain Skin: Reports: No symptoms Neurological: Reports: No symptoms Endocrine: Reports: No symptoms Hematologic/Lymphatic: Reports: No symptoms All Other Systems: Reviewed and Negative Past Medical History - Past Medical History Previously Healthy: Yes Endocrine: Reports: None, Hypothyroid Cardiovascular: Reports: None Respiratory: Reports: None Hematological: Reports: None Gastrointestinal: Reports: None Genitourinary: Reports: None Neuro/Psych: Reports: None Musculoskeletal: Reports: None Cancer: Reports: None Last Menstrual Period: N/A - Surgical History General Surgical History: Reports: Unknown - Family History Family History: Reports: Unknown - Social History Smoking Status: Current some day smoker Hx Substance Use: No Alcohol Screening: None Physical Exam - Physical Exam Appearance: Well-appearing, No pain distress, Well-nourished Eyes: ISAK, EOMI, Conjunctiva clear ENT: Ears normal, Nose normal, Oropharynx normal Respiratory: Airway patent, Breath sounds clear, Breath sounds equal, Respirations nonlabored Cardiovascular: RRR, Pulses normal, No rub, No murmur GI/: Soft, Nontender, No masses, Bowel sounds normal, No Organomegaly Musculoskeletal: Normal strength, ROM intact, No edema, No calf tenderness Skin: Warm, Dry, Normal color Neurological: Sensation intact, Motor intact, Reflexes intact, Cranial nerves intact, Alert, Oriented Psychiatric: Affect appropriate, Mood appropriate Critical Care Note - Critical Care Note Total Time (mins): 0 Course - Course Orders, Labs, Meds: Orders Category Date Time Status FOOT, LEFT 3 VIEWS Stat RADS 07/24/17 13:44 Ordered Vital Signs: Temp Pulse Resp BP Pulse Ox 07/24/17 12:32 98.3 F 82 20 108/66 93 L Departure - Departure Time of Disposition: 14:50 Disposition: HOME SELF-CARE Discharge Problem: Left foot pain Instructions: Arthralgia (ED) Condition: Good Pt referred to PMD for follow-up: Yes IPMP verified?: Yes Allergies/Adverse Reactions: Allergies prednisone Adverse Reaction (Verified 07/24/17 12:37)
== END 2017-07-24 15:00 | disposition home or self-care (01) ==
LOC: ED 12:32
DX: M79.672 Pain in left foot (principal); F17.210 Nicotine dependence, cigarettes, uncomplicated
CPT/HCPCS: 99282

== ENCOUNTER → 2017-08-21 | Outpatient (POV) ==
[2017-07-24 12:36] VITALS: BMI 31.2
== END ==
LOC: OUTPT 00:01
PROVIDERS: ATTEND Otolaryngology
DX: H91.90 Unspecified hearing loss, unspecified ear (principal)

== ENCOUNTER 2018-10-01 06:24 | Outpatient (CLI) | payer OTHER ==
--- NOTE | 2018-10-02 10:29 | ECHO2D ---
Date of Exam: 10/01/18 Ordering Physician: KAI VAZ--[facility] #: OP Reason for Echo: EDEMA OF LOWER EXTREMITIES, SHORT OF BREATH M-Mode Normal Adult Results LV Dimensions Normal Adult Results AoV Opening excursions >1.6 >1.6 LVEDD-base- 3.5-5.8 4.0 Ao root dimensions 2.0-3.7 3.8 LVESD-base- 3.1-4.6 L. Atrium dimensions 1.9-3.8 3.6 Post. Wall thickness 0.8-1.1 1.2 IV septum (thickness) 0.7-1.2 1.2 Post. Wall excursion 0.72-1.3 NORMAL Septal motion NORMAL Systolic motion R. Ventricular cavity 1.5-2.0 NORMAL LVEF 60% 70% Paradoxical septal wall motion NORMAL 2-D : 2-D M Mode Echocardiogram was performed using apical four chamber and left parasternal long and short axis views. Mitral Valve Prolapse noted left parasternal long axis and apical four chamber view. Tricuspid and aortic valves appear to be normal. Contractility of the left ventricle seems to be normal, so is the cavity size. Left atrial cavity size and aortic root appear to be normal. There is no pericardial effusion. There is no thrombus noted in the left ventricular or left aortic cavity. M-MODE: MV: LATE MITRAL VALVE PROLAPSE AV: NORMAL TV: NORMAL PV: CHAMBER SIZE: NORMAL WALL MOTION: NORMAL PERICARDIUM: NORMAL INTERPRETATION: 1. LATE SYSTOLIC MITRAL VALVE PROLAPSE 2. NORMAL LEFT VENTRICULAR CONTRACTILITY 3. NORMAL VALVES MTDD
== END 2018-10-01 06:25 | disposition home or self-care (01) ==
LOC: CAR 06:24
PROVIDERS: ATTEND Nurse Practitioner Family
DX: R60.0 Localized edema (principal)

== ENCOUNTER 2019-10-10 10:26 | Observation (INO) ==
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
[2019-10-10] MEDS ORDERED: DUONEB NEB STA (11:04)
[2019-10-10] MEDS ORDERED: COMBIVENT RESPIMAT INHALER IH ONE (11:21)
[2019-10-10 11:24] LABS: HEMATOCRIT 38.1 % (37.0-47.0)
[2019-10-10] MEDS ORDERED: NORCO 7.5-325 PO STA (11:24)
--- NOTE | 2019-10-10 11:36 | DI ---
EXAM: Chest, two views COMPARISON: Chest radiographs 09/19/[address] chest 09/19/2019. HISTORY: Dyspnea. FINDINGS: There are emphysematous changes of the lungs bilaterally. 8 mm nodular opacity the left l mary base as noted on previous radiographs and chest CT. Prominent interstitial markings throughout t he lower lungs bilaterally which may be related to underlying chronic lung disease though this has mi ldly increased in extent in the right lower lung and superimposed mild interstitial edema or infectio n is not excluded. No pleural effusion or pneumothorax. Marked demineralization with degenerative c hange of the spine. Normal cardiomediastinal silhouette. IMPRESSION: 1. Emphysematous changes of the lungs. 2. Prominent interstitial markings lower lungs bilaterally which may be related to underlying chroni c lung disease though mildly increased in extent on the right lower lung superimposed pneumonia is no t excluded. Correlate clinically. Short-term follow-up radiographs recommended. 3. Nodular opacity in the left lower lung as noted on previous radiographs and CT. Continued survei llance with CT is recommended per recommendations and prior CT chest report.
[2019-10-10] MEDS ORDERED: ZITHROMAX PO STA (13:33)
[2019-10-10] MEDS ORDERED: ROCEPHIN 1 GM/50 ML D5W 1 GM/50 ML BAG IV STA (13:52)
[2019-10-10] MEDS ORDERED: ROCEPHIN 1 GM/50 ML D5W 1 GM/50 ML BAG IV SCH (14:00)
[2019-10-10] MEDS ORDERED: TYLENOL PO PRN (14:30)
[2019-10-10] MEDS ORDERED: VENTOLIN HFA (PER PUFF-WITH SPACER) IH PRN (14:35)
[2019-10-10 15:17] VITALS: BMI 43.7
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
[2019-10-10] MEDS: LASIX IVP SCH (16:58)
[2019-10-10] MEDS: COMBIVENT RESPIMAT INHALER IH SCH ×2 (16:59→20:28)
[2019-10-10] MEDS ORDERED: SYMBICORT 160-4.5 MCG INHALER IH ONE ×2 (20:29)
[2019-10-10] MEDS: SYMBICORT 160-4.5 MCG INHALER IH SCH (20:29)
[2019-10-10] MEDS: DOXYCYCLINE HYCLATE PO SCH (20:30)
[2019-10-10] MEDS ORDERED: CELEXA PO SCH (21:00)
[2019-10-11] MEDS ORDERED: VENTOLIN HFA (PER PUFF-WITH SPACER) IH STA (01:30)
[2019-10-11 05:09] LABS: HEMATOCRIT 36.3 % (37.0-47.0)
[2019-10-11] MEDS: LASIX IVP SCH (06:17)
[2019-10-11] MEDS ORDERED: SYNTHROID PO SCH (06:30)
[2019-10-11] MEDS ORDERED: PROTONIX PO SCH (06:30)
[2019-10-11] MEDS ORDERED: MOBIC PO SCH (08:00)
[2019-10-11] MEDS ORDERED: MICRO-K CAP PO SCH (08:00)
[2019-10-11] MEDS ORDERED: VENTOLIN HFA (PER PUFF-WITH SPACER) IH SCH (08:30)
[2019-10-11] MEDS ORDERED: VENTOLIN HFA (PER PUFF-WITH SPACER) IH PRN (08:40)
[2019-10-11] MEDS: SYMBICORT 160-4.5 MCG INHALER IH SCH (08:55)
[2019-10-11] MEDS: DOXYCYCLINE HYCLATE PO SCH (08:57)
[2019-10-11] MEDS ORDERED: COMBIVENT RESPIMAT INHALER IH SCH ×2 (09:00)
[2019-10-11] MEDS ORDERED: SPIRIVA IH SCH (09:00)
[2019-10-11] MEDS ORDERED: TOPROL XL PO SCH (09:00)
[2019-10-11] MEDS ORDERED: NON-FORMULARY MEDICATION (Levocetirizine 5 MG) PO SCH (09:00)
[2019-10-11] MEDS ORDERED: CLARITIN PO SCH (09:00)
[2019-10-11] MEDS ORDERED: LOVENOX SUBCUT SCH ×2 (09:00)
[2019-10-11] MEDS ORDERED: ROCEPHIN 1 GM/50 ML D5W 1 GM/50 ML BAG IV SCH (09:00)
[2019-10-11] MEDS ORDERED: CRESTOR PO SCH (09:00)
[2019-10-11] MEDS ORDERED: SYMBICORT 160-4.5 MCG INHALER IH SCH (09:30)
--- NOTE | 2019-10-11 09:34 | DI ---
EXAM: Chest two view, frontal and lateral views. HISTORY: Possible pneumonia. COMPARISON: 1 day prior, 09/19/2019, 07/04/2017. FINDINGS: Heart size is normal. Peribronchial thickening and chronic reticular opacities seen throu ghout both lungs, greater in the bases. Focal linear opacity in the lateral right mid lung is stable from the most recent study, new since 09/19/2019. Left basilar nodule is not as well seen currently . No consolidation, pleural effusion or pneumothorax identified. No acute osseous abnormality is se en. Stable lateral left rib fractures with adjacent pleural thickening, similar to prior examination . Old right rib fractures also IMPRESSION: Stable right lung subsegmental atelectasis or pneumonitis superimposed upon chronic lung disease.
[2019-10-11 10:14] VITALS: BP 121/62; TEMP 97.8
[2019-10-11] MEDS ORDERED: LASIX IM STA (13:13)
--- NOTE | 2019-10-11 15:02 | PCM.DC ---
Final Diagnosis: primary: acute on chronic hypoxic respiratory failure COPD exarcerbation possible community acquired pneumonia new onset, continuous oxygen therapy possible failed outpatient therapy for lower extremity cellulitis bilateral LE cellulitis vs cutaneous vasculitis secondary: bipolar disorder/depression hypothyroidism dyslipidemia hx prev CVA (1) Acute on chronic respiratory failure with hypoxia: Status: Acute Code(s): J96.21 - Acute and chronic respiratory failure with hypoxia SNOMED Code(s): 602324589 (2) COPD (chronic obstructive pulmonary disease) with emphysema: Status: Acute Code(s): J43.9 - Emphysema, unspecified SNOMED Code(s): 73971242 (3) Peripheral vascular insufficiency: Status: Acute Code(s): I73.9 - Peripheral vascular disease, unspecified SNOMED Code(s): 662011013 (4) Cellulitis of both lower extremities: Status: Acute Code(s): L03.115 - Cellulitis of right lower limb SNOMED Code(s): 505848358 (5) Morbid obesity with BMI of 40.0-44.9, adult: Status: Acute Code(s): E66.01 - Morbid (severe) obesity due to excess calories; Z68.41 - Body mass index (BMI) 40.0-44.9, adult SNOMED Code(s): 447998607 Reason for Hospitalization: pt admitted with worsening acute on chronic hypoxic respiratory failure, COPD exarcerbation, continued tobacco dependence. hx of bilateral lower extremity cellulitis, failed outpatient antibiotic therapy for BLE cellulitis, possible cutaneous vasculitis please see full H&P for details. Prognosis at Discharge: fair. pt has moderate to severe COPD with acute worsening of her dyspnea with home nebulizer and HFA treatments. Pt now with possible community acquired PNA complications to her known disease. Pt continues to smoke 5 cigarettes per day per her report. Pt now requiring continuous oxygen therapy Condition at Discharge: acute on chronic hypoxic respiratory failure improved but not resolved. bilateral LE edema improved; no drainage or open lesions noted. pt is afebrile with improved leukocytosis; she is hemodynamically stable; deemed safe for discharge. Medications at Discharge: Ambulatory Orders Medication Instructions Recorded citalopram 20 mg PO BEDTIME #30 tab-cap 04/16/16 levothyroxine 112 mcg PO daily-empty stomach #30 04/16/16 tab-cap budesonide-formoterol [Symbicort 2 puff INHALATION BID #1 ih 05/16/16 160-4.5 Mcg Inhaler] albuterol sulfate [Ventolin Hfa] 90 mcg INHALATION 2 puffs Q4-6 hr 05/17/16 prn PRN #1 ih meloxicam [Mobic] 15 mg PO DAILY #30 tab-cap 07/06/16 tiotropium bromide [Spiriva] 18 mcg INHALATION DAILY inha 08/21/17 furosemide 40 mg PO DAILY 10/10/19 levocetirizine 5 mg PO DAILY 10/10/19 metoprolol succinate 25 mg PO DAILY 10/10/19 pantoprazole 40 mg PO DAILY 10/10/19 potassium chloride 20 meq PO DAILY 10/10/19 rosuvastatin 10 mg PO DAILY 10/10/19 amoxicillin 875 mg PO Q12H #14 tab 10/11/19 doxycycline hyclate 100 mg PO Q12HR #14 cap 10/11/19 Lab/Diagnostics: wbc 10.49 improved; Na 130.9 improved; CL 95.5 improved repeat CXR: EXAM: Chest two view, frontal and lateral views. HISTORY: Possible pneumonia. COMPARISON: 1 day prior, 09/19/2019, 07/04/2017. FINDINGS: Heart size is normal. Peribronchial thickening and chronic reticular opacities seen throughout both lungs, greater in the bases. Focal linear opacity in the lateral right mid lung is stable from the most recent study, new since 09/19/2019. Left basilar nodule is not as well seen currently. No consolidation, pleural effusion or pneumothorax identified. No acute osseous abnormality is seen. Stable lateral left rib fractures with adjacent pleural thickening, similar to prior examination. Old right rib fractures also IMPRESSION: Stable right lung subsegmental atelectasis or pneumonitis superimposed upon chronic lung disease. Education Provided to Patient and Family: encouraged to continue to stop smoking use nebulizer treatments at home every 6 hours around the clock, not just during the day hours use albuterol rescue inhaler as needed; cont symbicort as prescribed use oxygen at 2 lpm nasal cannula at all times complete all antibotics as prescribed Follow-ups: see pcp in 5 - 7 days needs follow up CT of chest for known re-demonstrated lung nodules Discharge Disposition: Home Hospital Course: pt admitted and continued on oxygen started in ED. Pt with coarse audible breath sounds with significant expiratory wheezes noted. CXR and CT chest indicate possible PNA with significant changes related to lung disease. Continued on combivent HFA q6hrs with prn albuterol HFA with spacer. No nebulized medications given per current hospital protocol related to CDC recom mendations related to COVID 19. No steroids due to pts allergy. pt with possible PNA on CXR and CT. started on doxycyline po bid. Pt noted to have inverted T wave on EKG which may be related to infection, lung disease, or ischemia related to hypoxia. Pt had an ECHO EF 70% on 10/02/19 which showed mitral valve prolapse, normal LV fxn and normal valves. pt with bilateral lower extremity cellulitis vs vasculitis. noted multiple healing hyperkeratotic appearing lesions over bilateral LE L>R. no weeping noted but pt states have been weeping recently. blood cultures obtained with no growth on preliminary report at time of discharge. pt has had course of clindamycin 02/2019 for lower extremity cellulitis. completed 10 day course of keflex and 10 day course of bactrim this month for cellulitis.still with 2+ pitting edema noted bilaterally with erythema and warmth. started on ceftriaxone IV. Pt on lasix po, changed to lasix IV 40mg BID with significant improvement in her lower extremity edema. unable to obtain culture from lesions as they are healing. unclear if true failed outpt therapy for cellulitis or component of vasculitis vs PAD. no c/o claudication but pt doesn't walk much due to dyspnea with exertion. pt feeling better. pt wants to go home. states with her hx of bipolar depression she gets anxious in hospitals. pts breathing is improved but not back to her baseline per her report especially with mild exertion such as walking to bathroom. Pt states usually is able to walk to bathroom but here she has not been able to get up quickly enough and has experienced some incontinence due to worsened dyspnea with exertion. pt is evaluated by respiratory and qualifies for home oxygen which is delivered. Her repeat CXR is not definitive for PNA, possibly a component of edema noted. pt down 5 pounds with diuresis and breathing is improved. pt has remained afebrile, wbc 12 down to 10.49. pt advised to continue her nebulizer treatments at home every 6 hours, cont symbicort and albuterol rescue inhaler. pt discharged with spacer. advised to wear oxygen all the time. she will resume her po lasix at home. she has rx sent to pharmacy for doxycyline and amoxicillin to complete course for possible PNA/COPD exarcerbation and cellulitis. pt has no other changes to her home medication regimen. pt to follow up with pcp in 5 - 7 days; complete antibiotics as prescribed; advised to quit smoking. pt lives alone but says her son lives 9 miles from her.
== END 2019-10-11 13:30 | disposition home or self-care (01) ==
LOC: MEDSURG B 10:26 → ED 10:26 → MEDSURG B 14:48
PROVIDERS: ADMIT Nurse Practitioner Family; ATTEND Nurse Practitioner Family
DX: R06.02 Shortness of breath; E78.5 Hyperlipidemia, unspecified; I73.9 Peripheral vascular disease, unspecified; F31.9 Bipolar disorder, unspecified; F41.9 Anxiety disorder, unspecified; J18.9 Pneumonia, unspecified organism; J96.21 Acute and chronic respiratory failure with hypoxia; J44.1 Chronic obstructive pulmonary disease with (acute) exacerbation; L03.116 Cellulitis of left lower limb; J43.9 Emphysema, unspecified; Z68.41 Body mass index [BMI] 40.0-44.9, adult; R60.0 Localized edema; E03.9 Hypothyroidism, unspecified; D72.829 Elevated white blood cell count, unspecified; F17.200 Nicotine dependence, unspecified, uncomplicated; Z86.73 Personal history of transient ischemic attack (TIA), and cerebral infarction without residual deficits; F32.9 Major depressive disorder, single episode, unspecified; L03.115 Cellulitis of right lower limb; E66.01 Morbid (severe) obesity due to excess calories

== ENCOUNTER 2022-09-22 21:39 | Inpatient (IN) ==
[2022-09-22] MEDS ORDERED: DUONEB NEB STA (21:53)
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
[2022-09-22 22:04] LABS: BASOPHILS % (AUTO) 0.4 % (0.0-3.0); EOSINOPHILS # (AUTO) 0.2 K/ul (0.0-0.7); EOSINOPHILS % (AUTO) 3.2 % (0.0-7.0); HEMOGLOBIN 12.1 g/dl (12.0-16.0); IMMATURE GRANULOCYTE % (AUTO) 0.3 % (0.0-5.0); LYMPHOCYTES # (AUTO) 1.9 K/uL (0.60-3.4); LYMPHOCYTES % (AUTO) 26.2 (10.0-50.0); MEAN CORPUSCULAR HEMOGLOBIN 31.8 pg (27.0-31.0); MEAN CORPUSCULAR HGB CONC 31.8 (31.8-35.4); MEAN CORPUSCULAR VOLUME 99.7 fl (81.0-99.0); MONOCYTES # (AUTO) 0.7 K/uL (0.4-2.0); MONOCYTES % (AUTO) 9.1 (0-10); NEUTROPHILS # (AUTO) 4.4 K/ul (2.0-6.9); NEUTROPHILS % (AUTO) 60.8 % (42.2-75.2); PLATELET COUNT 175 10^3/uL (140-440); RDW COEFFICIENT OF VARIATION 13.7 % (11.6-14.8); RED BLOOD COUNT 3.81 10^6/ul (4.20-5.40); WHITE BLOOD COUNT 7.15 K/ul (4.6-10.2)
--- NOTE | 2022-09-22 22:11 | DI ---
EXAM: SINGLE VIEW OF THE CHEST. History: Dyspnea. Comparison: Chest CT 06/23/2020 FINDINGS: Heart size is normal. Emphysema and chronic interstitial lung changes. No pleural fluid and no pneumothorax. No acute osseous abnormalities. Atherosclerotic vascular calcifications. Impression: 1. No pneumonia. 2. Emphysema and chronic interstitial lung disease
[2022-09-22 22:17] LABS: ALANINE AMINOTRANSFERASE 40.7 U/L (0-35); ALBUMIN 4.01 g/dL (3.5-5.0); ALKALINE PHOSPHATASE 148.7 U/L (53-141); ASPARTATE AMINO TRANSFERASE 45.9 U/L (14-36); BILIRUBIN,TOTAL 0.48 mg/dL (0.2-1.3); BLOOD UREA NITROGEN 18.5 mg/dL (7-17); CALCIUM 8.66 mg/dL (8.4-10.2); CARBON DIOXIDE 35.3 mmol/L (22-30.0); CHLORIDE 99.2 mmol/L (98-107); CREATININE 0.62 mg/dL (0.60-1.30); GLUCOSE 121.2 mg/dL (74-106); POTASSIUM 4.24 mmol/L (3.5-5.1); SODIUM 135.5 mmol/L (134.5-145); TOTAL PROTEIN 7.44 g/dL (6.3-8.2)
[2022-09-22 22:26] LABS: MOLECULAR FLU A NEGATIVE BY NAAT (NEGATIVE); MOLECULAR FLU B NEGATIVE BY NAAT (NEGATIVE)
[2022-09-22] MEDS ORDERED: ALBUTEROL 0.083% NEB NEB STA (22:36)
[2022-09-22] MEDS ORDERED: PULMICORT 1 MG/2 ML NEB STA (22:36)
[2022-09-22 22:41] LABS: SARS COV-2 RNA RAPID NAAT NEGATIVE (NEGATIVE)
[2022-09-22] MEDS ORDERED: PULMICORT 0.5 MG/2 ML NEB ONE (22:44)
[2022-09-22] MEDS ORDERED: ZANAFLEX PO PRN (22:52)
[2022-09-22] MEDS ORDERED: TYLENOL PO PRN (22:52)
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
[2022-09-22] MEDS ORDERED: ALBUTEROL 0.083% NEB NEB SCH (23:00)
[2022-09-22] MEDS ORDERED: SODIUM CHLORIDE 1,000 ML IV SCH (23:00)
[2022-09-22] MEDS ORDERED: PULMICORT 1 MG/2 ML NEB SCH (23:00)
[2022-09-22] MEDS ORDERED: NICODERM 21 MG TD SCH (23:30)
[2022-09-22] MEDS ORDERED: ZITHROMAX 500 MG in SODIUM CHLORIDE 250 ML IV SCH (23:30)
[2022-09-22 23:40] VITALS: BMI 23.0
[2022-09-22] MEDS ORDERED: ULTRAM ONE (23:56)
[2022-09-22] MEDS: ULTRAM PO PRN (23:58)
[2022-09-22] MEDS: ATIVAN PO PRN (23:58)
[2022-09-23 00:45] LABS: ABG PH 7.36 (7.35-7.45)
[2022-09-23 00:46] LABS: BEecf 10.8 (-2.0-3.0); COHb 3.8 (0.5-1.5); HCO3 36.2 (21-28); MetHb 0.6 (0-1.5); TCO2 38.2 (19-24)
[2022-09-23 00:47] LABS: ABG O2 HGB 93.5 % (95-100); sO2 98.4 % (94-98)
[2022-09-23] MEDS ORDERED: PULMICORT 1 MG/2 ML NEB SCH (02:00)
[2022-09-23] MEDS: ALBUTEROL 0.083% NEB NEB SCH ×2 (03:00→04:55)
[2022-09-23 03:37] LABS: ABG PH 7.33 (7.35-7.45)
[2022-09-23 03:38] LABS: ABG O2 HGB 93.3 % (95-100); BEecf 10 (-2.0-3.0); COHb 3.6 (0.5-1.5); HCO3 35.9 (21-28); MetHb 0.7 (0-1.5); TCO2 38 (19-24); sO2 96.3 % (94-98); tHb 11.9 g/dl (11.7-17.4)
[2022-09-23] MEDS: PULMICORT 1 MG/2 ML NEB SCH ×2 (04:55→17:29)
[2022-09-23] MEDS: SYNTHROID PO SCH ×2 (05:48→05:49)
[2022-09-23 06:03] LABS: ABG O2 HGB 94.8 % (95-100); ABG PH 7.34 (7.35-7.45); BEecf 10.3 (-2.0-3.0); COHb 2.9 (0.5-1.5); HCO3 36.1 (21-28); MetHb 0.7 (0-1.5); TCO2 38.2 (19-24); sO2 98.1 % (94-98); tHb 11.7 g/dl (11.7-17.4)
[2022-09-23] MEDS ORDERED: ALBUTEROL 0.083% NEB NEB STA (08:01)
--- NOTE | 2022-09-23 08:20 | PCM.PROG ---
Date Seen by Provider: 09/23/22 Time Seen by Provider: 08:18 Subjective: admitted for copd exacerbation--no new nursing staff concerns Objective: Vitals: T=96.9 F, P=70, R=18, EC=377/64, UWN3=475 HEENT: [] Neck: [supple] Lungs: [scattered wheezes] CVS: [rrr] Abdomen: [soft nt bs] Extremities: [] Neurological: [intact] Skin: [] Lab/Tests/Diagnostic Imaging: [] (1) Acute exacerbation of chronic obstructive pulmonary disease (COPD): Status: Acute Code(s): J44.1 - Chronic obstructive pulmonary disease with (acute) exacerbation SNOMED Code(s): 120769266 (2) Acute respiratory failure with hypoxia and hypercapnia: Status: Acute Code(s): J96.01 - Acute respiratory failure with hypoxia; J96.02 - Acute respiratory failure with hypercapnia SNOMED Code(s): 345649324 Plan: d/w with resp therapy---change oxygen and neb tx---check labs in am
[2022-09-23] MEDS: ROCEPHIN 1 GM/50 ML D5W 1 GM/50 ML BAG IV SCH (09:10)
[2022-09-23] MEDS: MULTIVITAMIN TABLET PO SCH (09:11)
[2022-09-23] MEDS: TOPROL XL PO SCH (09:11)
[2022-09-23] MEDS: RISPERDAL PO SCH (09:11)
[2022-09-23] MEDS: SINGULAIR PO SCH (09:12)
[2022-09-23] MEDS: LOVENOX SUBCUT SCH (09:12)
[2022-09-23] MEDS: MUCINEX PO SCH ×2 (09:12→20:29)
[2022-09-23] MEDS: DUONEB NEB SCH ×4 (10:11→21:55)
[2022-09-23] MEDS ORDERED: LASIX IVP STA (18:04)
[2022-09-23 18:13] LABS: ABG O2 HGB 92.5 % (95-100); ABG PH 7.36 (7.35-7.45); BEecf 10.8 (-2.0-3.0); COHb 2.2 (0.5-1.5); HCO3 36.2 (21-28); MetHb 0.7 (0-1.5); TCO2 38.2 (19-24); sO2 93.1 % (94-98); tHb 12.2 g/dl (11.7-17.4)
--- NOTE | 2022-09-23 18:49 | DI ---
EXAM: CHEST FRONTAL VIEW HISTORY: Increased respiratory rate, difficulty breathing COMPARISON: 09/22/2022 FINDINGS: Heart size and mediastinum remain within normal limits. Atherosclerotic disease. There is diffuse, chronic appearing interstitial accentuation. Lungs are hyperinflated and there is relat samantha lucency of the lung zones suggesting pulmonary emphysema. No definite consolidated pneumonia. T here is no vascular congestion, pleural fluid or pneumothorax. IMPRESSION: 1. Probable chronic obstructive pulmonary disease. Correlate clinically. No definite consolidated pneumonia or acute infiltrate.
[2022-09-23] MEDS ORDERED: SOLU-MEDROL 125 MG IVP STA (18:50)
[2022-09-23] MEDS: NICODERM 21 MG TD SCH (20:30)
[2022-09-23] MEDS: CELEXA PO SCH (20:30)
[2022-09-23] MEDS ORDERED: ZITHROMAX 500 MG in SODIUM CHLORIDE 250 ML IV SCH (21:00)
[2022-09-23] MEDS ORDERED: ULTRAM ONE (23:13)
[2022-09-23] MEDS: ATIVAN PO PRN (23:14)
[2022-09-23] MEDS: ULTRAM PO PRN (23:14)
[2022-09-24] MEDS: DUONEB NEB SCH ×6 (01:40→22:20)
[2022-09-24] MEDS ORDERED: ROBITUSSIN DM SYRUP PO ONE (01:41)
[2022-09-24] MEDS: PULMICORT 1 MG/2 ML NEB SCH ×2 (04:45→17:31)
[2022-09-24 05:07] LABS: HEMATOCRIT 41.1 % (37.0-47.0); HEMOGLOBIN 13.3 g/dl (12.0-16.0); IMMATURE GRANULOCYTE % (AUTO) 0.4 % (0.0-5.0); LYMPHOCYTES # (AUTO) 0.7 K/uL (0.60-3.4); LYMPHOCYTES % (AUTO) 12.2 (10.0-50.0); MEAN CORPUSCULAR HGB CONC 32.4 (31.8-35.4); MEAN CORPUSCULAR VOLUME 98.8 fl (81.0-99.0); MONOCYTES % (AUTO) 0.6 (0-10); NEUTROPHILS # (AUTO) 4.7 K/ul (2.0-6.9); NEUTROPHILS % (AUTO) 86.8 % (42.2-75.2); PLATELET COUNT 199 10^3/uL (140-440); RDW COEFFICIENT OF VARIATION 13.4 % (11.6-14.8); RED BLOOD COUNT 4.16 10^6/ul (4.20-5.40); WHITE BLOOD COUNT 5.42 K/ul (4.6-10.2)
[2022-09-24 05:20] LABS: BLOOD UREA NITROGEN 20.9 mg/dL (7-17); CALCIUM 8.88 mg/dL (8.4-10.2); CARBON DIOXIDE 36.3 mmol/L (22-30.0); CHLORIDE 100.6 mmol/L (98-107); CREATININE 0.59 mg/dL (0.60-1.30); GLUCOSE 153.8 mg/dL (74-106); POTASSIUM 3.94 mmol/L (3.5-5.1)
[2022-09-24 05:36] LABS: ABG O2 HGB 92.4 % (95-100); ABG PH 7.38 (7.35-7.45); BEecf 9.2 (-2.0-3.0); COHb 1.7 (0.5-1.5); HCO3 34.3 (21-28); MetHb 0.7 (0-1.5); TCO2 36.1 (19-24); sO2 93.2 % (94-98); tHb 14.2 g/dl (11.7-17.4)
[2022-09-24] MEDS: SYNTHROID PO SCH ×2 (05:52)
[2022-09-24] MEDS: LOVENOX SUBCUT SCH (09:11)
[2022-09-24] MEDS: ROCEPHIN 1 GM/50 ML D5W 1 GM/50 ML BAG IV SCH (09:11)
[2022-09-24] MEDS: MUCINEX PO SCH ×2 (09:12→21:04)
[2022-09-24] MEDS: MULTIVITAMIN TABLET PO SCH (09:12)
[2022-09-24] MEDS: RISPERDAL PO SCH (09:12)
[2022-09-24] MEDS: TOPROL XL PO SCH (09:12)
[2022-09-24] MEDS: SINGULAIR PO SCH (09:12)
--- NOTE | 2022-09-24 09:42 | PCM.PROG ---
Date Seen by Provider: 09/24/22 Time Seen by Provider: 09:10 Subjective: No complaints. Reports breathing improved. Tolerating steroids. Objective: Vitals: T=96 F, P=93, R=20, ZB=350/77, SPO2=99 Alert and breathing without distress. On nasal cannula oxygen. HEENT: [] Neck: [] Lungs: [] Air exchange much improved. CVS: [] RRR Abdomen: []Soft, nontender. Extremities: []No edema. Neurological: [] Skin: [] Lab/Tests/Diagnostic Imaging: [] (1) Acute exacerbation of chronic obstructive pulmonary disease (COPD): Status: Acute Code(s): J44.1 - Chronic obstructive pulmonary disease with (acute) exacerbation SNOMED Code(s): 936103919 (2) Acute respiratory failure with hypoxia and hypercapnia: Status: Acute Code(s): J96.01 - Acute respiratory failure with hypoxia; J96.02 - Acute respiratory failure with hypercapnia SNOMED Code(s): 095381022 Plan: Respiratory status improved. Continue same. Increase activity. Hopefully, home tomorrow.
[2022-09-24] MEDS: SOLU-MEDROL 125 MG IVP SCH ×2 (12:30→21:04)
--- NOTE | 2022-09-24 14:59 | RS.PTINEVL ---
Subjective - Patient information Date of Evaluation: 09/24/22 Date of Arrival on Unit: 09/24/22 Admitted From:: Halfway Diagnosis: advanced COPD, acute resp failure Usual Living Arrangement: Halfway Living Arrangement Comments: lives alone, has been at [facility] a short time, pt was planning to be dc soon when had to come to hospital Home Environment: House, Stairs (few) (pt has [facility]) Medical History: COPD, Arthritis Medical History Comments:: anxiety, bipolar, depression, asthma, cellulitis, hyperthyroidism Surgical History: Hysterectomy Medications: see chart (was on home O2) Subjective Information/ Patient Comments:: pt states that she will be going home alone with her dog. States she has [facility] for homemaking services. - Level of function Abilities prior to this admission: pt was at [facility] for short time amb with rwx. Current Level of Function: Partially Dependent Current Equipment Used at Home: OXYGEN, WALKER, NEBULIZER Interventions - Objective Patient Orientation: Person, Place Current Interventions: IV's, Oxygen (3 liters), Telemetry Observation: BLE with dry, peeling skin, discoloration Range of Motion - ROM Right Upper Extremity AROM: WFL's Left Upper Extremity AROM: WFL's Right Lower Extremity AROM: WFL's Left Lower Extremity AROM: WFL's Muscle Strength - Muscle Strength Right Upper Extremity Strength: Mild Weakness (grossly 4/5) Left Upper Extremity Strength: Mild Weakness (grossly 4/5) Right Lower Extremity Strength: Mild Weakness (hip flex 4-/5, knee flex 4/5, ext 4-/5, ankle DF/PF 4-/5) Left Lower Extremity Strength: Mild Weakness (hip flex 4-/5, knee flex 4/5, ext 4-/5, ankle DF/PF 4-/5) Sensation - Sensation Right Upper Extremity Sensation: Intact/Normal Left Upper Extremity Sensation: Intact/Normal Right Lower Extremity Sensation: Impaired Left Lower Extremity Sensation: Impaired Palpation Palpation Findings: Tenderness (BLE) Balance - Sitting Balance and Reactions Static Sitting Balance: Good Dynamic Sitting Balance: Fair - Standing Balance and Reactions Static Standing Balance: Poor Dynamic Standing Balance: Poor Standing Equilibrium Reactions: Delayed Left, Delayed Right Standing Protective Reactions: Delayed Left, Delayed Right Functional Mobility - Bed Mobility Rolling R/L: Supervision Supine to Sit: CGA - Transfers Sit to Stand: CGA Stand to Sit: CGA - Safety Awareness Safety Awareness: Fair ELSA INDEX SCORE: n/a Ambulation - Ambulation Assistive Device Used: Rolling Walker Orthotic/Prosthetic Device: No Distance: 2-3 steps Assistance needed with Ambulation: CGA Gait Deviations: Forward posture, Short stride Ambulation Comments: O2 sats 93 at rest 92 with transfer Factors Affecting Ambulation: Decreased Balance, Breathing/O2 Saturation, W eakness, Decreased Safety, Limited Endurance Treatment time - Time with patient Length of Evaluation: 21 Total treatment time: 26 Patient Education - Education Patient Education: Activity Modification, Education of Plan of Care Teaching Recipient: Patient Teaching Methods: Discussion Comments: discussion regarding POC Assessment - Assessment Problem List:: Decreased level of function, Requires training/education, Decreased safety/Risk of falls, Weakness Rehab Potential: Good Further Therapy Indicated?: Yes Candidate for Swing Bed for Therapy Services?: Feel pt may not be a candidate for swing bed due to higher level of function. Evaluation Complexity: HISTORY: Medium, EXAM OF BODY SYSTEMS: Medium, CLINICAL PRESENTATION: Medium, CLINICAL DECISION MAKING: Medium Patient's Goal(s): be able to go back to her home with her little dog Short Term Goals GOAL #1: pt independent with rolling and scooting in bed. Goal to be met by: 09/26/22 GOAL #2: Transfer sup to/from sit SBA Goal to be met by: 09/26/22 GOAL #3: Transfer sit to/from stand SBA Goal to be met by: 09/26/22 GOAL #4: pt amb 50ft with rwx CGA no LOB Goal to be met by: 09/26/22 GOAL #5: Improve dyn stand balance fair. Goal to be met by: 09/26/22 Pharmacovigilance Specialist Goals GOAL #1: pt transfer sup to/from sit to/from stand independently. Goal to be met by: 09/28/22 GOAL #2: pt amb with rwx functional household distances SBA no LOB Goal to be met by: 09/28/22 GOAL #3: Improve BLE strength 4+/5 Goal to be met by: 09/28/22 Plan Plan of Care: Therapeutic EX, Therapeutic Activity Other:: gait training Frequency of Treatment: 1-2 X day, as tolerated Duration of Treatment: 4 days Anticipated Discharge Destination: Home Treatment Diagnosis (ICD 10 Codes): Impaired balance R 26.81. difficulty walking R 26.2. weakness M62.81 Has the Physician been added for Co-signature?: Yes
[2022-09-24] MEDS ORDERED: ULTRAM ONE (21:01)
[2022-09-24] MEDS: NICODERM 21 MG TD SCH (21:04)
[2022-09-24] MEDS: CELEXA PO SCH (21:05)
[2022-09-24] MEDS: ATIVAN PO PRN (21:05)
[2022-09-24] MEDS: ULTRAM PO PRN (21:05)
[2022-09-25] MEDS: DUONEB NEB SCH ×6 (02:00→21:16)
[2022-09-25] MEDS: PULMICORT 1 MG/2 ML NEB SCH ×2 (04:40→18:10)
[2022-09-25 05:14] LABS: HEMATOCRIT 38.6 % (37.0-47.0); HEMOGLOBIN 12.7 g/dl (12.0-16.0); IMMATURE GRANULOCYTE # (AUTO) 0.1 (0.0-1.0); IMMATURE GRANULOCYTE % (AUTO) 0.4 % (0.0-5.0); LYMPHOCYTES # (AUTO) 0.9 K/uL (0.60-3.4); MEAN CORPUSCULAR HGB CONC 32.9 (31.8-35.4); MEAN CORPUSCULAR VOLUME 97.2 fl (81.0-99.0); MONOCYTES # (AUTO) 0.2 K/uL (0.4-2.0); MONOCYTES % (AUTO) 2.1 (0-10); NEUTROPHILS % (AUTO) 89.5 % (42.2-75.2); PLATELET COUNT 204 10^3/uL (140-440); RDW COEFFICIENT OF VARIATION 13.4 % (11.6-14.8); RED BLOOD COUNT 3.97 10^6/ul (4.20-5.40); WHITE BLOOD COUNT 11.19 K/ul (4.6-10.2)
[2022-09-25] MEDS: SOLU-MEDROL 125 MG IVP SCH (05:18)
[2022-09-25 05:27] LABS: BLOOD UREA NITROGEN 24.8 mg/dL (7-17); CALCIUM 8.85 mg/dL (8.4-10.2); CARBON DIOXIDE 34.3 mmol/L (22-30.0); CHLORIDE 100.4 mmol/L (98-107); CREATININE 0.57 mg/dL (0.60-1.30); GLUCOSE 152.4 mg/dL (74-106); POTASSIUM 3.98 mmol/L (3.5-5.1); SODIUM 136.2 mmol/L (134.5-145)
[2022-09-25] MEDS ORDERED: TYLENOL ONE (05:31)
[2022-09-25] MEDS: SYNTHROID PO SCH ×2 (05:46)
[2022-09-25] MEDS ORDERED: TESSALON PERLES PO PRN (07:56)
[2022-09-25] MEDS: ROCEPHIN 1 GM/50 ML D5W 1 GM/50 ML BAG IV SCH (08:58)
[2022-09-25] MEDS: LOVENOX SUBCUT SCH (08:58)
[2022-09-25] MEDS: SINGULAIR PO SCH (09:02)
[2022-09-25] MEDS: MULTIVITAMIN TABLET PO SCH (09:02)
[2022-09-25] MEDS: MUCINEX PO SCH ×2 (09:02→20:50)
[2022-09-25] MEDS: RISPERDAL PO SCH (09:02)
[2022-09-25] MEDS: TOPROL XL PO SCH (09:02)
[2022-09-25] MEDS: DECADRON IVP SCH (09:21)
--- NOTE | 2022-09-25 14:02 | PCM.PROG ---
Date Seen by Provider: 09/25/22 Time Seen by Provider: 09:00 Objective: Vitals: T=97 F, P=99, R=24, TX=657/57, SPO2=95 HEENT: [mucus membranes moist ] Neck: [supple ] Lungs: [Wheezing bilaterally ] CVS: [Regular s1 and s2 ] Abdomen: [soft no tender not distended. ] Extremities: [No edema, Slatis dermatitis. ] Neurological: [ awake and alert. Moves all 4s] Skin: [no rash ] Lab/Tests/Diagnostic Imaging: [] (1) Acute exacerbation of chronic obstructive pulmonary disease (COPD): Status: Acute Code(s): J44.1 - Chronic obstructive pulmonary disease with (acute) exacerbation SNOMED Code(s): 366814298 (2) Acute respiratory failure with hypoxia and hypercapnia: Status: Acute Code(s): J96.01 - Acute respiratory failure with hypoxia; J96.02 - Acute respiratory failure with hypercapnia SNOMED Code(s): 970148669 Plan: Plan on disposition due to patient confuses about home situation, ability to care for self and independence.
[2022-09-25] MEDS ORDERED: VENOFER 500 MG in SODIUM CHLORIDE 250 ML IV ONE ×2 (15:37→20:30)
--- NOTE | 2022-09-25 16:37 | RS.COGEVAL ---
Subjective Date of Evaluation: 09/25/22 Diagnosis: COPD exacerbation, SOB Current Level of Function: This is a 62 year old female whom was living alone in an apartment, and after a hospital stay was placed in a custodial facility. She currently resides in the custodial facility and is admitted to this hospital after SOB and COPD exacerbation symptoms. The patient will complete a cognitive assessment to determine cognitive status and safety awareness for return to home environment vs return to custodial facility for continued care. Current Diet: Regular diet; thin liquids Current Subjective/complaints:: The pt was alert upright in the recliner chair upon INVENTORY CONTROL MANAGER entry. The INVENTORY CONTROL MANAGER provided verbal explanation over the cognitive assessments that were to be administered to aid with successful placement for pt's safety. The patient verbally agreed to answer questions and participated in two assessments. The patient had no questions to ask the INVENTORY CONTROL MANAGER and was provided several opportunities. The INVENTORY CONTROL MANAGER provided verbal explanation that cognitive testing was to address her memory, problem solving, safety, and home management tasks to determine her level of independence. Medical History Comments:: COPD, bipolar, depression, pneumonia Hx Home Medications: Refer to medications for complete list. Patient's Goals: To return home and receive home health assistance 6 days a week. Information History:: The patient reported that she has been in a rehab facility for three months. When asked about her history the patient reports recent history of having a dizzy spell and 'blackout' period. She was taken to the hospital and stated, "I was confused, so they put me in the rehab facility." When asked about her cognitive therapy, she denied completing cognitive therapy at the SNF and then stated, " i just went to rehab to get my strength back." The patient is not a good historian and it is hard to obtain a clear medical history. The INVENTORY CONTROL MANAGER then asked the patient about when she was independent in the home environment. She reported that she had an [facility] home health worker 6x/week from 8-12. She reported that [facility] worker helped her with all her home management tasks except for dressing herself and light cooking. Informal Assessment:: The INVENTORY CONTROL MANAGER administered portions of "[employer] Safety Evaluation". The evaluation has sections that ask for reasoning and problem solving situations for the home enviornment, commmunity, medical/health management, and swallowing risks. The INVENTORY CONTROL MANAGER administered the wheelchair and assistive device portions and pt scored 40% and 80%. The swallowing and diet questions were asked and pt scored 0% with identifying aspiration/aspiration risks, Heimlich or universal sign for choking. When asked more abotu her swallowing, the patient reports she eats alone in her apartment and denied swallowing difficulty. However, the patient does have risks for aspiration due to her mouth breathing posture and gasping for air with exertion. The patient also reported inconsistency in answers as evidenced by initially stating she sleeps in her dentures, then when asked about her cleaning routine, she stated she soaks them at night. The INVENTORY CONTROL MANAGER is suspicious that she provides the answers needed to address the question in the moment, even though it may not be how she participates with these activities addressed. Medications and health section completed and she scored 20%, 60%. In these questions the patient frequently answers with use of her first alert call button or to call her PCP to assist her medical needs. General precautions section with floors and stairs was completed and pt verbalized 80% and 20%. Home safety section was asked and demonstrated 60 and 80% accuracy with verbal reasoning to potential situations in the home (i.e. a burglar gets into your house). The INVENTORY CONTROL MANAGER continued to use this assessment as a resource to ask further questions about her independence in the home environment. The patient was asked several questions a second time and answers did vary from the first response. At time of assessments, the patient was answering questions quickly and providing answers that were potentially not relevant to her case of her home environment, but relevant to a general population. At this time, her cognitive processes may demonstrate mild-moderate deficits with problem solving and reasoning skills. Formal/Objective Assessment:: SLUMS was completed. All sections were administered and patient was agreeable during the assessment. The patient's highest level of education reported was 8th grade, so the averages are different for lower level education. For less than high school education 30-25 is WNL, 24- 20 is mild cognitive impairment, and 19-1 is dementia. The patient scored 18/30, which indicates the level of dementia. Orientation 3/3, immediate memory recall was 5/5, delayed recall was 3/5, Problem solving was 1/3, verbal naming was 1/3, mental flexibility was 0/2, clock drawing was 2/4, following directions was 0/2, and auditory comprehension was 8/8. TOTAL 18/30 indicates level of dementia. The patient had moderate difficulty with problem solving, verbal naming, memory recall, mental flexibility, clock drawing and following directions. She had minimal deficits with orientation and auditory comprehension. Functional Communication Measure:: INVENTORY CONTROL MANAGER suspects mild-moderate cognitive impairment with higher level cognitive processes including but not limited to, problem solving, sequencing, organization, reasoning, judgment and insight. Analysis:: The patient presented with dementia level score based on the SLUMs assessment. During the informal safety assessment for home she scored with range of 20-80% demonstrating inconsistency with her verbalizing safety awareness without supervision. Summary and Recommendations:: The patient demonstrated minimal deficits with immediate memory recall, orientation tasks, and auditory comprehension. She had moderate deficits with verbal naming, delayed recall, problem solving, mental flexibility, clock drawing, and following one step instructions. At this time, the patient has been demonstrating safety awareness skills with her PT treatment sessions as evidenced by verbal report from PT department. However, she cannot verbalize those same situations without PT present, which may induce pt to have unsafe behavior when she is not supervised. Also, cognitive status presents as mild-moderate cognitive impairment as evidenced by results from the SLUMs assessment and informal questioning with the home safety assessment. The patient was asked the same questions on several occasions and provided different answers which may be more towards psychosis vs cognition. At this time, the INVENTORY CONTROL MANAGER recommends the patient have supervision to complete any home management tasks. The INVENTORY CONTROL MANAGER also observed pt as an aspiration risk due to her breath support and open mouth breathing with large gasps of air. The INVENTORY CONTROL MANAGER will complete cognitive therapy during this hospital stay to address cognitive function and improve functional independence. Functional Reporting G Codes: n/a Severity Impairment Rationale: n/a Short Term Goals Goal #1: Problem solving tasks with 90% accuracy Independently. Goal to be met by: 10/02/22 Goal #2: Safety awareness tasks with 90% accuracy independently Goal to be met by: 10/02/22 Goal #3: Verbal reasoning tasks with 90% accuracy independently Goal to be met by: 10/02/22 Farm Equipment Engine Mechanic Goals Goal #1: Verb/demo independence w/i home management tasks Goal to be met by: 10/02/22 Plan Duration of Treatment: 1 Week Frequency of Treatment: 2-3x/week Anticipated Discharge Destination: Recommend pt return to SNF Comments: The results of the assessments were not discussed fully with the patient. The INVENTORY CONTROL MANAGER discussed that the test was completed to assess her level of cognition to determine readiness for independence in the home environment. The patient did not ask what her test results were at the end of the assessment. The INVENTORY CONTROL MANAGER scored the patient after leaving the room; and the INVENTORY CONTROL MANAGER will return at future date to review her results. - Treatment Code (1) Cognitive impairment Code(s): R41.89 - Other symptoms and signs involving cognitive functions and awareness
[2022-09-25] MEDS: CELEXA PO SCH (20:49)
[2022-09-25] MEDS: NICODERM 21 MG TD SCH (20:50)
[2022-09-25] MEDS ORDERED: ULTRAM ONE (20:58)
[2022-09-25] MEDS: ATIVAN PO PRN (20:59)
[2022-09-25] MEDS: ULTRAM PO PRN (20:59)
[2022-09-26] MEDS: DUONEB NEB SCH ×3 (01:50→10:04)
[2022-09-26] MEDS: PULMICORT 1 MG/2 ML NEB SCH (04:40)
[2022-09-26] MEDS: SYNTHROID PO SCH ×2 (05:51)
[2022-09-26 05:52] VITALS: BP 129/74; TEMP 97.7
[2022-09-26] MEDS: TOPROL XL PO SCH (09:45)
[2022-09-26] MEDS: MULTIVITAMIN TABLET PO SCH (09:46)
[2022-09-26] MEDS: LOVENOX SUBCUT SCH (09:46)
[2022-09-26] MEDS: DECADRON IVP SCH (09:46)
[2022-09-26] MEDS: RISPERDAL PO SCH (09:46)
[2022-09-26] MEDS: SINGULAIR PO SCH (09:46)
[2022-09-26] MEDS: MUCINEX PO SCH (09:46)
--- NOTE | 2022-09-26 09:51 | PCM.PROG ---
Date Seen by Provider: 09/26/22 Time Seen by Provider: 09:00 Subjective: Patient reports feeling much better Objective: Vitals: T=97.7 F, P=89, R=24, EL=784/74, SIB8=639 Breathing without any distress. Alert. HEENT: [] Neck: [] No JVD Lungs: [] Clear. BS equal. CVS: [] RRR Abdomen: []Soft, nontender. Extremities: [] Neurological: [] Skin: [] Lab/Tests/Diagnostic Imaging: [] (1) Cognitive impairment: Status: Acute Code(s): R41.89 - Other symptoms and signs involving cognitive functions and awareness SNOMED Code(s): 707113042 Assessment: Patient medically stable for discharge. However, her disposition needs to be determined. She is felt to be incompetent and unable to safely care for herself. Plan: Will have social media content specialist contact son to aid in placement decisions.
--- NOTE | 2022-09-26 10:17 | PCM.DC ---
Final Diagnosis: cognitive impairment acute exacerbation of COPD acute respiratory failure with hypoxia and hypercapnia Physical Exam Appearance: Well-appearing, No pain distress and Well-nourished Ill-appearing: None Pain Distress: None Eyes: Conjunctiva clear ENT: Nose normal and Oropharynx normal Neck: Supple Respiratory: Airway patent, Breath sounds clear, Breath sounds equal and Breath sounds diminished Cardiovascular: RRR, No rub and No murmur GI/: Soft, Nontender, No masses, Bowel sounds normal and No Organomegaly Musculoskeletal: Normal strength and No edema Skin: Warm, Dry and Normal color Neurological: Sensation intact, Motor intact and Alert Psychiatric: Affect appropriate and Mood appropriate (1) Cognitive impairment: Status: Acute Code(s): R41.89 - Other symptoms and signs involving cognitive functions and awareness SNOMED Code(s): 604607986 Reason for Hospitalization: Patient admitted with acute exacerbation of COPD and acute respiratory failure. She was treated with steroids and nebulizer treatments. Patient improved clinically and was weaned from bipap. She was discharged on 2L/min [place] oxygen. During the hospialization it became clear that the patient had cognitive impairment and was unable to safely care for herself at home. Prognosis/Condition at Discharge: Condition at discharge was fair. Medications at Discharge: Patient was discharged on the same medications as at admission. Education Provided to Patient and Family: COPD Follow-ups: Follow up with primary care provider within one week. Discharge Disposition: Inpatient Rehab Unit Hospital Course: Patient admitted with acute exacerbation of COPD and respiratory failure. She was treated with steroids, nebulizer treatments and bipap. As she improved, she was weaned from bipap. Patient was agreeable to return to the same care facility that she was at at the time of admission. Plan: Discharge to same care facility as at admission.
--- NOTE | 2022-09-26 10:37 | RS.COGNOTE ---
Cognitive Treatment Note Date of Note: 09/26/22 Visit #: 1 Time of Treatment: 09:30 Subjective: The patient was sitting upright in bed upon TREE PULLER entry. The patient reported no complaints and was alert and cooperative. The CM entered the room to begin the discussion with reviewing the patient's cognitive results. The patient was provided extensive education from TREE PULLER on the areas of concern with her cognition and given the scores to each area of concern. The CM assisted with reviewing her current level of care and returning to a supervised level of care vs return to independent level of care. This was appreciated by the patient and she verbally agreed to return to the SNF and participate in cognitive therapy and continue with her rehab programs. The CM left the room and cognitive therapy was provided. Total treatment time: 30 - Short Term Goals Goal #1: Problem solving tasks with 90% accuracy Independently. Activity/Accuracy: Problem solving cards were presented to the patient. She reviewed pictures and answered 'wh' questions. The patient identified the problem with mild difficulty, requiring prompts to state the actual problem in the scenario. The patient provided solutions to the problems with moderate difficulty, requiring verbal examples and moderate verbal/visual cues to provide one or more solutions. The patient provided verbal reasoning for problems with m ild-moderate difficulty. She demonstrated average of 75% with problem solving tasks given mild-moderate verbal/visual cues. Goal #2: Safety awareness tasks with 90% accuracy independently Activity/Accuracy: During problem solving scenario's safety awareness was addressed. The patient could identify 50% of the unsafe situations via picture cards. The patient could not verbalize the safety issues related to her breath support and energy conservation. The patient provided safety strategies to scenarios given mild-moderate verbal cues. The patient demonstrated average of 70% accuracy with safety awareness independently, increasing to 100% with verbal cues. Goal #3: Verbal reasoning tasks with 90% accuracy independently Activity/Accuracy: The patient participated in structured conversation regarding her return to the home environment. The TREE PULLER provided 'wh' questions to the patient. She verbalized reasoning skills with 75% accuracy given mild-moderate verbal prompts. - Coil Cutter Goals Goal #1: Verb/demo independence w/i home management tasks Assessment: The patient participated in 30 minutes of cognitive therapy and reported mental fatigue. During structured cognitive tasks, the patient did not demonstrate independence with response to 'wh' questions with problem solving, safety awareness, or reasoning skills. The patient continues to require verbal prompts, and/or cues to verbalize cognitive processes with 90-100% accuracy. The TREE PULLER recommends the patient continue to participate in cognitive therapy during her hospital stay. Upon return to the SNF; continue cognitive therapy for her goal of returning to home environment. - Units Charged Speech Therapy: 2 - Plan Frequency of Treatment: 2-3x/week Duration of Treatment: 1 Week
[2022-09-26] MEDS ORDERED: ULTRAM PO PRN (10:59)
== END 2022-09-26 12:05 | DRG 190 ==
LOC: ED 21:39 → MEDSURG A 22:51
PROVIDERS: ADMIT Surgery; ATTEND Surgery
DX: J96.01 Acute respiratory failure with hypoxia; Z99.81 Dependence on supplemental oxygen; J44.9 Chronic obstructive pulmonary disease, unspecified; Z20.822 Contact with and (suspected) exposure to COVID-19; F17.210 Nicotine dependence, cigarettes, uncomplicated; F41.9 Anxiety disorder, unspecified; F32.A Depression, unspecified; M62.81 Muscle weakness (generalized); Z79.899 Other long term (current) drug therapy; R26.81 Unsteadiness on feet; J44.1 Chronic obstructive pulmonary disease with (acute) exacerbation; R41.89 Other symptoms and signs involving cognitive functions and awareness; J96.02 Acute respiratory failure with hypercapnia; Z51.81 Encounter for therapeutic drug level monitoring